=== PATIENT | male | born 1980 | race Caucasian/White ===

== ENCOUNTER 2017-02-09 20:54 | Emergency (ER) ==
[2017-02-09 21:03] VITALS: BP 147/88; TEMP 99.4; BMI 35.4
[2017-02-09] MEDS ORDERED: DILAUDID 2 MG/ML SYRINGE IM STA (21:09)
[2017-02-09] MEDS ORDERED: TORADOL IM STA (21:09)
[2017-02-09] MEDS ORDERED: ZOFRAN 4 MG/2 ML IM STA (21:09)
--- NOTE | 2017-02-09 21:12 | ED.PDOC ---
General ED Provider: Dr. VIDHI TATE-ER Chief Complaint: Back Pain Stated Complaint: i have sciatic pain from my back down my right leg--im getting scheduled for an mri by my medical provider Time Seen by Physician: 20:55 Mode of Arrival: Walk-In Information Source: Patient Exam Limitations: No limitations Nursing and Triage Documentation Reviewed and Agree: Yes Musculoskeletal Complaint Exam - Back Pain Complaint/Exam Mechanism of Injury: Reports: No known trauma Onset/Duration: several weeks Symptoms Are: Still present Timing: Constant Initial Severity: Mild Current Severity: Moderate Location: Reports: Discrete Character: Reports: Dull, Aching, Stiffness Aggravating: Reports: Movements, Lifting, Bending, Walking Alleviating: Reports: None Associated Signs and Symptoms: Denies: Swelling, Redness, Bruising, Fever, Weakness, Numbness, Tingling, Abdominal pain, Flank pain, Bladder incontinence, Bowel incontinence, Weight loss, Pain with weight bearing Related History: Reports: Previous back injury Epidural Abcess Risk Factors: Reports: None Related Surgical History: Reports: None, Back Surgery Focal Tenderness: Yes Paraspinal Muscle Tenderness: Yes Paraspinal Muscle Spasm: No Scoliosis: No Lordosis: No Kyphosis: No SLR Test: Right Negative, Left Negative Hip Motion Testing Pain: Right Negative, Left Negative Focal Weakness: Present: None Focal Sensory Loss: Present: None Gait: Present: Abnormal Differential Diagnoses: Herniated Disk Review of Systems - Review Of Systems Constitutional: Reports: No symptoms Eyes: Reports: No symptoms Ears, Nose, Mouth, Throat: Reports: No symptoms Respiratory: Reports: No symptoms Cardiac: Reports: No symptoms GI: Reports: No symptoms : Reports: No symptoms Musculoskeletal: Reports: Back pain Skin: Reports: No symptoms Neurological: Reports: No symptoms Endocrine: Reports: No symptoms Hematologic/Lymphatic: Reports: No symptoms All Other Systems: Reviewed and Negative Past Medical History - Past Medical History Endocrine: Reports: Unknown Cardiovascular: Reports: Unknown Respiratory: Reports: Unknown Hematological: Reports: Unknown Gastrointestinal: Reports: Unknown Genitourinary: Reports: Unknown Neuro/Psych: Reports: Unknown Musculoskeletal: Reports: Back Pain Cancer: Reports: Unknown - Surgical History General Surgical History: Reports: Unknown - Family History Family History: Reports: Unknown - Social History Smoking Status: Current every day smoker Hx Substance Use: No Alcohol Screening: Occasionally - Immunizations Tetanus Shot up to Date: Yes Physical Exam - Physical Exam Appearance: Well-appearing, No pain distress, Well-nourished Pain Distress: Moderate Eyes: ARAM, EOMI, Conjunctiva clear ENT: Ears normal, Nose normal, Oropharynx normal Neck: Supple Respiratory: Airway patent, Breath sounds clear, Breath sounds equal, Respirations nonlabored Cardiovascular: RRR, Pulses normal, No rub, No murmur GI/: Soft, Nontender, No masses, Bowel sounds normal, No Organomegaly Musculoskeletal: Limited ROM Skin: Warm Neurological: Sensation intact, Motor intact, Reflexes intact, Cranial nerves intact, Alert, Oriented Psychiatric: Affect appropriate, Mood appropriate Re-Evaluation - Re-Evaluation Time of Re-Evaluation: 22:05 Status: Improved Vital Signs Stable: Yes Pain Level: 1 Appearance: NAD Lungs: Clear Skin: Warm and Dry Neuro: Alert and Oriented X3 CV: RRR Critical Care Note - Critical Care Note Total Time (mins): 0 Course - Course Orders, Labs, Meds: Orders Category Date Time Status Hydromorphone HCl/Pf [Dilaudid 2 mg/ml Syringe] MEDS 02/09/17 21:09 Discontinued 2 mg IM ONCE STA Ketorolac Tromethamine [Toradol] MEDS 02/09/17 21:09 Discontinued 60 mg IM ONCE STA Ondansetron HCl/Pf [Zofran 4 mg/2 ml] MEDS 02/09/17 21:09 Discontinued 4 mg IM ONCE STA Medications Discontinued Medications Generic Name Dose Route Start Last Admin Trade Name Freq PRN Reason Stop Dose Admin Hydromorphone HCl 2 mg 02/09/17 21:09 Dilaudid 2 Mg/Ml Syringe IM 02/09/17 21:10 ONCE STA Ketorolac Tromethamine 60 mg 02/09/17 21:09 Toradol IM 02/09/17 21:10 ONCE STA Ondansetron HCl 4 mg 02/09/17 21:09 Zofran 4 Mg/2 Ml IM 02/09/17 21:10 ONCE STA Vital Signs: Temp Pulse Resp BP Pulse Ox 02/09/17 20:56 99.4 F 83 20 147/88 H 97 Departure - Departure Time of Disposition: 21:12 Disposition: HOME SELF-CARE Discharge Problem: Sciatica Qualifiers: Laterality: right Qualifier Code: (M54.31) Sciatica, right side Instructions: Sciatica (ED), Lumbar Radiculopathy (ED) Condition: Good Pt referred to PMD for follow-up: Yes Additional Instructions: f/u with your medical provider and get mri as planned Allergies/Adverse Reactions: Allergies No Known Allergies Allergy (Unverified 02/09/17 21:03) Home Medications: Ambulatory Orders Hydrocodone Bit/Acetaminophen [[place] 7.5-325] 7.5 - 325 mg PO Q6H PRN 02/09/17 Ibuprofen [Motrin] 600 mg PO Q6H PRN 02/09/17 Oxycodone-Acetaminophe 7.5-325 [Percocet 7.5-325] 7.5 - 325 mg PO DAILY PRN Rosuvastatin Calcium [Crestor] 20 mg PO DAILY 02/09/17 Sertraline HCl 100 mg PO DAILY 02/09/17 Disposition Discussed With: Patient, Family
== END 2017-02-09 22:01 | disposition home or self-care (01) ==
LOC: ED 20:54
DX: M54.31 Sciatica, right side (principal); F17.210 Nicotine dependence, cigarettes, uncomplicated
CPT/HCPCS: 96372; 99282

== ENCOUNTER 2017-02-11 11:49 | Outpatient (CLI) ==
--- NOTE | 2017-02-11 13:51 | MRI ---
EXAM: MRI lumbar spine without IV contrast. DATE: 11 February 2017. HISTORY: Lumbar back pain. Right side sciatica. Numbness in the lateral aspect of the right foot Previous lumbar back surgery. TECHNIQUE: Sagittal and axial T1W and T2W sequences of the lumbar spine along with sagittal IR and coronal T2W sequences were obtained using 1.2 Roma magnet. No IV contrast. COMPARISON: LS spine series 04/09/2015. MRI L-spine 14 May 2015. FINDINGS: There are five [id number] lumbar vertebra. Minimal leftward curvature of the lumbar spine is present. A 2.7 mm anterior subluxation of S1 relative to L5 is due to facet disease. No other subluxation, acute fracture, osseous malignancy, or pars interarticularis defect is identified . Lumbar vertebra are normal in height. Chronic endplate indentations are redemonstrated at each l evel from T11 through L5. Disc desiccation without significant disc space narrowing is seen at L4-5. Small/moderate osteophytes, disc desiccation, and mild/moderate disc space narrowing are present a t L5-S1. No sacral fracture or stress reaction is identified. Minor right SI joint arthritis is no anna. Conus medullaris terminates at L1. Visible spinal cord is normal. No retroperitoneal lymphadenopathy, paraspinal mass, or aortic aneurysm is detected. Psoas musculat ure is symmetric bilaterally. Surgical changes are noted in the subcutaneous tissues posterior to L 5, S/P L5 decompression laminectomies. Minor right posterior paraspinal muscle atrophy is seen at L 4 and L5 levels. Visible portions of the liver, spleen, adrenal glands and kidneys are normal. Segmental analysis: T12-L1: Normal. L1-2: Normal. L2-3: Minimal left foraminal to far lateral disc bulge causes minimal left inferior foraminal encro achment. Left L2 nerve root contacts the disc bulge lateral to the foramen. No central canal steno sis. L3-4: Minimal posterior to left foraminal disc bulge and minor facet arthropathy cause triangulatio n of canal and minimal left inferior foraminal narrowing. L4-5: Moderate concentric disc bulge, mild facet arthropathy, and mild ligamentum flavum hypertroph y cause moderate central canal stenosis and mild bilateral foraminal stenoses. L5-S1: S/P L5 decompression laminectomies and partial left facet resection. The small amount scar tissue is observed at the posterior and left lateral epidural space. Minor anterior subluxation of S1, small concentric disc bulge, superimposed right paracentral disc extrusion (6 mm AP x 14 mm painting sverse x 12.5 mm behind the S1 superior endplate), mild facet arthropathy and slight right ligamentu m flavum hypertrophy cause mild central canal stenosis and moderate bilateral foraminal stenoses. Ea ch L5 nerve root contacts the disc bulge in the foramen. The disc extrusion compresses the right S1 nerve root against the right facet joint. IMPRESSIONS: 1. S/P decompression laminectomies at L5. Minor scar tissue abuts the left S1 nerve root. 2. Right S1 nerve root compression by L5-S1 disc extrusion - likely cause of RLE pain. 3. Multilevel central canal stenoses (L3-4: Minor. L4-5: Moderate. L5-S1: Mild). 4. Multilevel foraminal narrowing, especially L5-S1. Each L5 nerve root contacts the disc bulge ne ar the foramen, and could be sources for pain/radiculopathy.
== END 2017-02-11 11:50 | disposition home or self-care (01) ==
LOC: RAD 11:49
PROVIDERS: ATTEND Nurse Practitioner Family
DX: M54.5 Low back pain (principal)

== ENCOUNTER 2017-05-23 08:12 | Outpatient (CLI) ==
--- NOTE | 2017-05-23 09:28 | DI ---
EXAM: Two views of the right elbow HISTORY: Pain TECHNIQUE: AP lateral views of the right elbow were obtained. FINDINGS: No acute fractures are seen. There is anatomic alignment. The soft tissues are normal. The joint spaces are normal. IMPRESSION: No acute abnormalities are seen within the right elbow.
--- NOTE | 2017-05-23 12:27 | MRI ---
EXAM: Lumbar spine MRI without contrast. HISTORY: Fell down stairs 1 month ago. Previous abnormal MRI. COMPARISON: Lumbar spine MRI 02/11/2017. TECHNIQUE: Multiplanar, multisequence MR images were acquired of the lumbar spine without contrast. FINDINGS: Five non-rib bearing lumbar vertebra are present. There is straightening of the usual lum bar lordosis and 3 mm retrolisthesis of L5 on S1. The lumbar vertebra are normal in height and intri nsic bone marrow signal. There is mild irregular concavity of the endplates from T11-12 to L5-S1 and there is mild disc space narrowing and disc desiccation at L2-3. At L4-5, there is disc desiccation . At L5-S1, there is osteophytosis with disc desiccation and mild to moderate disc space narrowing. Conus medullaris ends at T12-L1 and has normal signal intensity. Canal diameter is developmentally narrow. There is minor right sacroiliac arthritis. The partially visualized liver, spleen, gallbladder and kidneys are unremarkable. There are no parav ertebral masses. Postsurgical changes are present in the subcutaneous fat and medial posterior bacilio pinous muscles at L5. This patient has undergone previous L5-S1 bilateral decompressive laminectomie s. T12-L1: The intervertebral disc is normal. L1-2: The intervertebral disc is normal. L2-3: There is a minor disc bulge that is asymmetric to the left laterally and far laterally. This minimally narrows the inferior left neural foramen and contacts the exiting left L2 nerve. There is no central canal stenosis. L3-4: The intervertebral disc is normal. There is minor right and mild left facet arthropathy and m ild bilateral ligamentum flavum hypertrophy. In this patient with a developmentally narrow canal, th ere is minor left neural foraminal stenosis. L4-5: There is a mild disc bulge and a small broad-based central and right posterolateral disc protr usion and annular tear. This minimally effaces the ventral thecal sac. Mild bilateral hypertrophic facet arthropathy and ligamentum flavum hypertrophy is present. There is mild spinal stenosis and mi ld right and mild to moderate left neural foraminal stenosis. AP diameter of the thecal sac is 8 mm. L5-S1: There are postoperative bilateral decompressive hemilaminectomy and partial medial facetectom y changes. Hazy hypointense T1 epidural fibrosis partially surrounds both S1 nerves. There is a mil d diffuse disc bulge with marginal osteophytes that narrows the inferior neural foramina bilaterally. There is a focal area of intermediate T1 and T2 soft tissue signal along the right paracentral gabriele n of the disc that extends below the disc level and probably represents a residual or recurrent disc extrusion which encroaches on the right S1 nerve. Contrast was not administered. The bulging also p osteriorly displaces the left S1 nerve and narrows the left lateral recess. There is moderate bilate ral foraminal stenosis with encroachment on both L5 nerves. IMPRESSION: 1. Status post bilateral L5-S1 decompressive laminectomies with minor epidural fibrosis. 2. Right L5-S1 disc extrusion compressing the right S1 nerve and posterior disc bulge which compress es the left S1 nerve. 3. Small central/right posterolateral disc protrusion L4-5 and mild spinal stenosis. 4. Mild to moderate left L4-5 and moderate bilateral L5-S1 neural foraminal stenosis.
== END 2017-05-23 08:13 | disposition home or self-care (01) ==
LOC: RAD 08:12
PROVIDERS: ATTEND Nurse Practitioner Family
DX: M25.521 Pain in right elbow (principal); R93.7 Abnormal findings on diagnostic imaging of other parts of musculoskeletal system